=== PATIENT | female | born 1935 | race Caucasian/White ===

== ENCOUNTER → 2017-01-08 | Outpatient (CLI) | payer MEDICARE ==
--- NOTE | 2017-01-08 16:26 | REP ---
RIGHT RIBS, PA CHEST: HISTORY: Right-sided rib pain. No history of trauma. COMPARISON: None. Four views of the right ribs show on evidence of an acute fracture or destructive osseous lesion. TWO VIEW CHEST: COMPARISON: None. HISTORY: Right-sided pain. The lung zuluaga are clear and the heart is not enlarged. The pleural angles are sharp. There is a grade II anterior wedge-shaped compression deformity seen involving T6. IMPRESSION: Possible T6 compression fracture of uncertain etiology, correlate clinically and consider MRI for further evaluation if clinically relevant. Signed by Michael Timmons DO 01/09/2017 10:11 A
--- NOTE | 2017-01-08 16:37 | REP ---
THORACIC SPINE, THREE VIEWS: REASON: Back pain which by history is acute. COMPARISON: There are no priors for comparison. There is an anterior wedge deformity seen involving which is either T5 or T6. Since the patient has acute pain this may be secondary to an acute grade 2 compression fracture. If the exact age of this needs to be determined, then an MRI would be appropriate. IMPRESSION: Findings as described above. Signed by Michael Timmons DO 01/09/2017 10:11 A
== END ==
LOC: M SMT 13:50
PROVIDERS: ATTEND Nurse Practitioner Family
DX: M54.6 Pain in thoracic spine (principal); R35.0 Frequency of micturition
CPT/HCPCS: 36415; 71010; 71101; 72072; 80048; 81001; 85025; 87086; G0463

== ENCOUNTER → 2017-01-08 | Outpatient (REF) | payer MEDICARE ==
[2017-01-08 14:04] LABS: ANION GAP 9 MEQ/L (8-16); BLOOD UREA NITROGEN 11 MG/DL (7-18); CALCIUM LEVEL 9.3 MG/DL (8.8-10.2); CARBON DIOXIDE LEVEL 28 MEQ/L (21-32); CHLORIDE LEVEL 96 MEQ/L (98-107); CREATININE FOR GFR 0.82 MG/DL (0.55-1.02); GLOMERULAR FILTRATION RATE > 60.0 (>32); GLUCOSE, FASTING 91 MG/DL (83-110); POTASSIUM SERUM 4.8 MEQ/L (3.5-5.1); SODIUM LEVEL 133 MEQ/L (136-145)
[2017-01-08 14:14] LABS: BASO # 0.1 K/mm3 (0.0-0.2); BASO % 0.8 % (0.0-1.0); EOS # 0.3 K/mm3 (0.0-0.50); EOS % 4.4 % (0.0-3.0); LARGE UNSTAINED CELL # 0.1 K/mm3 (0.0-0.4); LARGE UNSTAINED CELL % 1.6 % (0.0-4.0); LYMPH # 1.5 K/mm3 (1.5-4.5); LYMPH % 18.7 % (24.0-44.0); MEAN CORPUSCULAR HEMOGLOBIN 31.2 pg (27.0-33.0); MEAN CORPUSCULAR HGB CONC 34.1 g/dl (32.0-36.5); MEAN CORPUSCULAR VOLUME 91.6 fl (80.0-96.0); MONO # 0.4 K/mm3 (0.0-0.8); MONO % 5.5 % (0.0-5.0); NEUTROPHILS # 5.3 K/mm3 (1.8-7.7); NEUTROPHILS % 69.1 % (36.0-66.0); PLATELET COUNT, AUTOMATED 256 k/mm3 (150-450); RED CELL DISTRIBUTION WIDTH 12.4 % (11.5-14.5); WHITE BLOOD COUNT 7.6 K/mm3 (4.0-10.0)
== END ==
LOC: M SFHCPLAZ 10:30
PROVIDERS: ATTEND Nurse Practitioner Family
DX: R35.0 Frequency of micturition (principal)

== ENCOUNTER → 2017-01-09 | Outpatient (REF) | payer MEDICARE ==
[2017-01-09 18:01] LABS: ALBUMIN 4.4 GM/DL (3.2-5.2); ALBUMIN/GLOBULIN RATIO 1.76 (1.00-1.93); ALKALINE PHOSPHATASE 66 U/L (45-117); ALT/SGPT 16 U/L (12-78); ANION GAP 8 MEQ/L (8-16); AST/SGOT 20 U/L (15-37); BILIRUBIN,TOTAL 0.5 MG/DL (0.2-1.0); BLOOD UREA NITROGEN 12 MG/DL (7-18); CALCIUM LEVEL 9.3 MG/DL (8.8-10.2); CARBON DIOXIDE LEVEL 28 MEQ/L (21-32); CHLORIDE LEVEL 94 MEQ/L (98-107); CREATININE FOR GFR 0.78 MG/DL (0.55-1.02); GLOMERULAR FILTRATION RATE > 60.0 (>32); GLUCOSE, FASTING 83 MG/DL (83-110); PHOSPHORUS LEVEL 3.3 MG/DL (2.5-4.9); POTASSIUM SERUM 4.4 MEQ/L (3.5-5.1); SODIUM LEVEL 130 MEQ/L (136-145); TOTAL PROTEIN 6.9 GM/DL (6.4-8.2)
[2017-01-10 12:04] LABS: ALBUMIN 4.17 GM/DL (3.29-5.55); ALBUMIN % 60.5 % (55.8-66.1); GAMMA GLOBULIN % 11.1 % (11.1-18.8)
[2017-01-12 10:51] LABS: FREE KAPPA LIGHT CHAINS SERUM 20.6 mg/L (3.30-19.40); FREE KAPPA LIGHT CHAINS URINE 9.29 mg/L (1.35-24.19); FREE LAMBDA LIGHT CHAINS SERUM 14.9 mg/L (5.71-26.30); FREE LAMBDA LIGHT CHAINS URINE 0.43 mg/L (0.24-6.66); KAPPA/LAMBDA RATIO SERUM 1.38 (0.26-1.65)
== END ==
LOC: M SFHCPLAZ 15:46
PROVIDERS: ATTEND Nurse Practitioner Family
DX: M81.0 Age-related osteoporosis without current pathological fracture (principal); Z79.899 Other long term (current) drug therapy
CPT/HCPCS: 36415; 82306; 83883; 83970; 84075; 84100; 84165; 84166; 84443; 85652; G0463

== ENCOUNTER → 2017-01-11 | Outpatient (CLI) | payer MEDICARE | LOC: M LAB 11:52 | PROVIDERS: ATTEND Nurse Practitioner Family | DX: E87.1 Hypo-osmolality and hyponatremia (principal) ==

== ENCOUNTER → 2017-02-21 | Outpatient (CLI) | payer MEDICARE ==
[2017-02-21 08:18] LABS: ALBUMIN 3.7 GM/DL (3.2-5.2); ALBUMIN/GLOBULIN RATIO 1.19 (1.00-1.93); ALKALINE PHOSPHATASE 57 U/L (45-117); ALT/SGPT 19 U/L (12-78); ANION GAP 8 MEQ/L (8-16); AST/SGOT 19 U/L (15-37); BILIRUBIN,TOTAL 0.4 MG/DL (0.2-1.0); BLOOD UREA NITROGEN 15 MG/DL (7-18); CALCIUM LEVEL 9.3 MG/DL (8.8-10.2); CARBON DIOXIDE LEVEL 29 MEQ/L (21-32); CHLORIDE LEVEL 100 MEQ/L (98-107); CHOLESTEROL LEVEL 179 MG/DL (<200); CREATININE FOR GFR 0.81 MG/DL (0.55-1.02); FREE T4 0.93 NG/DL (0.76-1.46); GLOMERULAR FILTRATION RATE > 60.0 (>32); GLUCOSE, FASTING 93 MG/DL (83-110); POTASSIUM SERUM 4.4 MEQ/L (3.5-5.1); SODIUM LEVEL 137 MEQ/L (136-145); TOTAL PROTEIN 6.8 GM/DL (6.4-8.2); TRIGLYCERIDES LEVEL 57 MG/DL (<150)
== END ==
LOC: M LAB 07:12
PROVIDERS: ATTEND Nurse Practitioner Family
DX: E78.2 Mixed hyperlipidemia (principal); E55.9 Vitamin D deficiency, unspecified; E03.9 Hypothyroidism, unspecified

== ENCOUNTER → 2017-11-14 | Outpatient (REF) | payer MEDICARE ==
[2017-11-14 13:43] LABS: BASO # 0.1 10^3/uL (0.0-0.2); EOS # 0.1 10^3/uL (0.0-0.50); EOS % 2.4 % (0.0-3.0); HEMATOCRIT 35.5 % (36.0-47.0); IMMATURE GRANULOCYTE % 0.4 % (0-0); LYMPH # 1.6 10^3/uL (1.5-4.5); LYMPH % 32.5 % (24.0-44.0); MEAN CORPUSCULAR HEMOGLOBIN 30.8 pg (27.0-33.0); MEAN CORPUSCULAR HGB CONC 33.8 g/dl (32.0-36.5); MEAN CORPUSCULAR VOLUME 91.3 fl (80.0-96.0); MONO # 0.6 10^3/uL (0.0-0.8); MONO % 11.1 % (0.0-5.0); NEUTROPHILS # 2.6 10^3/uL (1.8-7.7); NEUTROPHILS % 52.6 % (36.0-66.0); PLATELET COUNT, AUTOMATED 196 10^3/uL (150-450); RED BLOOD COUNT 3.89 10^6/uL (4.00-5.40); RED CELL DISTRIBUTION WIDTH 12.3 % (11.5-14.5)
[2017-11-14 13:59] LABS: ADD MORPHOLOGY? YES; PLT CLUMPS? POS FLAG; POS COUNT POS FLAG
[2017-11-14 14:00] LABS: PLATELET CLUMPS SMALL AMT; PLATELET ESTIMATE NORMAL (NORMAL)
[2017-11-14 14:01] LABS: POIKILOCYTOSIS 1+
[2017-11-14 14:02] LABS: ALBUMIN/GLOBULIN RATIO 1.48 (1.00-1.93); ALKALINE PHOSPHATASE 52 U/L (45-117); ALT/SGPT 20 U/L (12-78); AMYLASE 90 U/L (25-115); ANION GAP 8 MEQ/L (8-16); AST/SGOT 27 U/L (7-37); BILIRUBIN,TOTAL 0.3 MG/DL (0.2-1.0); BLOOD UREA NITROGEN 14 MG/DL (7-18); CARBON DIOXIDE LEVEL 27 MEQ/L (21-32); CHLORIDE LEVEL 97 MEQ/L (98-107); CREATININE FOR GFR 0.74 MG/DL (0.55-1.02); GLOMERULAR FILTRATION RATE > 60.0 (>32); GLUCOSE, FASTING 84 MG/DL (83-110); LIPASE 245 U/L (73-393); POTASSIUM SERUM 4.7 MEQ/L (3.5-5.1); SODIUM LEVEL 132 MEQ/L (136-145); TOTAL PROTEIN 6.7 GM/DL (6.4-8.2)
== END ==
LOC: M SFHCPLAZ 10:27
DX: R10.30 Lower abdominal pain, unspecified (principal)
CPT/HCPCS: 82150

== ENCOUNTER → 2017-11-19 | Outpatient (CLI) | payer MEDICARE ==
[~2017-11-19] MED LIST: GASTROGRAFIN SOLUTION 30ML (Q9963) As Ordered; ISOVUE-370 76% 100ML VIAL (Q9967) As Ordered
== END ==
LOC: M RAD 11:48
DX: R10.30 Lower abdominal pain, unspecified (principal); M51.36 Other intervertebral disc degeneration, lumbar region
CPT/HCPCS: Q9963

== ENCOUNTER → 2018-03-26 | Outpatient (REF) | payer MEDICARE ==
[2018-03-26 17:14] LABS: ALBUMIN 3.8 GM/DL (3.2-5.2); ALBUMIN/GLOBULIN RATIO 1.27 (1.00-1.93); ALKALINE PHOSPHATASE 56 U/L (45-117); ALT/SGPT 17 U/L (12-78); ANION GAP 6 MEQ/L (8-16); AST/SGOT 19 U/L (7-37); BILIRUBIN,TOTAL 0.3 MG/DL (0.2-1.0); BLOOD UREA NITROGEN 16 MG/DL (7-18); CALCIUM LEVEL 9.3 MG/DL (8.8-10.2); CARBON DIOXIDE LEVEL 30 MEQ/L (21-32); CHLORIDE LEVEL 98 MEQ/L (98-107); CREATININE FOR GFR 0.75 MG/DL (0.55-1.30); FREE T4 0.96 NG/DL (0.76-1.46); GLOMERULAR FILTRATION RATE > 60.0 (>32); GLUCOSE, FASTING 83 MG/DL (70-100); MAGNESIUM LEVEL 1.9 MG/DL (1.8-2.4); POTASSIUM SERUM 4.3 MEQ/L (3.5-5.1); SODIUM LEVEL 134 MEQ/L (136-145); TOTAL PROTEIN 6.8 GM/DL (6.4-8.2)
== END ==
LOC: M SFHCPLAZ 14:31
DX: M81.0 Age-related osteoporosis without current pathological fracture (principal); E55.9 Vitamin D deficiency, unspecified; E03.9 Hypothyroidism, unspecified
CPT/HCPCS: 83735

== ENCOUNTER → 2018-07-16 | Outpatient (CLI) | payer MEDICARE | LOC: M WHC 12:48 | DX: M81.0 Age-related osteoporosis without current pathological fracture (principal) | CPT/HCPCS: 77080 ==

== ENCOUNTER → 2018-09-16 | Outpatient (CLI) | payer MEDICARE | LOC: M SMT 13:47 | DX: M43.16 Spondylolisthesis, lumbar region (principal); M25.78 Osteophyte, vertebrae; M41.86 Other forms of scoliosis, lumbar region; M41.87 Other forms of scoliosis, lumbosacral region; M54.41 Lumbago with sciatica, right side | CPT/HCPCS: 72110; G0463 ==

== ENCOUNTER → 2019-01-19 | Outpatient (CLI) | payer MEDICARE ==
[~2019-01-19] MED LIST changes: +CALCCHW4 PO; +CRES10TA32 PO; +CVS20TAB PO; +FISH1CAP37 PO; -GASTROGRAFIN SOLUTION 30ML (Q9963) As Ordered; -ISOVUE-370 76% 100ML VIAL (Q9967) As Ordered; +MAGN250T7 PO; +PROBCAP14 PO; +SYNT25TA PO; +VIAC8.5C PO; +VITATAB11 PO
--- NOTE | 2019-01-20 19:20 | REPMRS ---
Patient History The patient states she had a clinical breast exam in 2017.No known family history of cancer. Digital Mammo Screening Bilat: January 19, 2019 - Exam #: [id number] Bilateral CC and MLO view(s) were taken. Technologist: Dori Romero, Technologist Prior study comparison: 2017, bilateral diagnostic 3D/tomosynthesis, performed at [facility]. December 19, 2015, digital mammo diagnostic bilateral performed at [facility]. December 16, 2014, digital woman screen mammo, performed at [facility]. FINDINGS: There are scattered fibroglandular densities. There has been no change in the appearance of the mammogram from the prior studies. There is a mild amount of residual fibroglandular tissue which is fairly symmetric. There is no interval development of dominant mass, architectural distortion, or clustered microcalcification suggestive of malignancy. Large coarse benign appearing calcifications are present on the right.There are scattered, small, benign calcifications of doubtful clinical significance. Post operative scarring left breast is unchanged for years. 3-D tomosynthesis shows no additional findings. No significant changes when compared with prior studies. Assessment: BI-RADS/ACR category 2 mammogram. Benign Findings. Recommendation Routine screening mammogram in 1 year (for women over age 40). This mammogram was interpreted with the aid of an FDA-approved computer-aided dectection system. A. Negative x-ray reports should not delay biopsy if a dominant or clinically suspicious mass is present. B. Four to eight percent of cancers are not identified by mammography. C. Adenosis and dense breast may obscure an underlying neoplasm. Electronically Signed By: Aric Ríos MD 01/20/19 [id number]
== END ==
LOC: M RAD 10:38
PROVIDERS: ATTEND Internal Medicine Hematology & Oncology
DX: Z12.31 Encounter for screening mammogram for malignant neoplasm of breast (principal)

== ENCOUNTER → 2019-01-22 | Outpatient (CLI) | payer MEDICARE ==
[2019-01-22 07:36] LABS: ALBUMIN 3.8 GM/DL (3.2-5.2); ALT/SGPT 16 U/L (12-78); BILIRUBIN,TOTAL 0.4 MG/DL (0.2-1.0); BLOOD UREA NITROGEN 15 MG/DL (7-18); CALCIUM LEVEL 9.3 MG/DL (8.8-10.2); CARBON DIOXIDE LEVEL 29 MEQ/L (21-32); CHLORIDE LEVEL 99 MEQ/L (98-107); CHOLESTEROL LEVEL 199 MG/DL (<200); CHOLESTEROL RISK RATIO 2.139 (<5); CREATININE FOR GFR 0.74 MG/DL (0.55-1.30); FREE T4 1.02 NG/DL (0.76-1.46); GLOMERULAR FILTRATION RATE > 60.0 (>32); GLUCOSE, FASTING 92 MG/DL (70-100); HDL CHOLESTEROL 93 MG/DL (>40); LDL CHOLESTEROL 96 MG/DL (<100); MAGNESIUM LEVEL 1.9 MG/DL (1.8-2.4); NON-HDL-C 106 MG/DL; POTASSIUM SERUM 4.1 MEQ/L (3.5-5.1); SODIUM LEVEL 136 MEQ/L (136-145); TOTAL PROTEIN 6.8 GM/DL (6.4-8.2); TRIGLYCERIDES LEVEL 51 MG/DL (<150)
[2019-01-22 09:30] LABS: TOTAL 25(OH) VITAMIN D 59.5 NG/ML (30.0-100.0)
== END ==
LOC: M LAB 06:33
PROVIDERS: ATTEND Internal Medicine Hematology & Oncology
DX: M81.0 Age-related osteoporosis without current pathological fracture (principal); E03.9 Hypothyroidism, unspecified; E55.9 Vitamin D deficiency, unspecified; E78.2 Mixed hyperlipidemia

== ENCOUNTER → 2019-06-17 | Outpatient (REF) | payer MEDICARE ==
[~2019-06-17] MED LIST changes: +CRES10TA PO; -CRES10TA32 PO; -CVS20TAB PO; +D200CAP3 PO; +OMEP20TA9 PO; -VIAC8.5C PO; +VIACTIV 500-5001 CHW PO
[2019-06-17 13:49] LABS: BASO # 0.1 10^3/uL (0.0-0.2); BASO % 0.8 % (0.0-1.0); EOS # 0.2 10^3/uL (0.0-0.50); EOS % 3.1 % (0.0-3.0); HEMATOCRIT 37.4 % (36.0-47.0); HEMOGLOBIN 12.6 g/dl (12.0-15.5); LYMPH # 1.2 10^3/uL (1.5-4.5); LYMPH % 19.1 % (24.0-44.0); MEAN CORPUSCULAR HEMOGLOBIN 30.2 pg (27.0-33.0); MEAN CORPUSCULAR HGB CONC 33.7 g/dl (32.0-36.5); MEAN CORPUSCULAR VOLUME 89.7 fl (80.0-96.0); MONO # 0.5 10^3/uL (0.0-0.8); MONO % 8.4 % (0.0-5.0); NEUTROPHILS # 4.2 10^3/uL (1.8-7.7); NEUTROPHILS % 68.4 % (36.0-66.0); PLATELET COUNT, AUTOMATED 276 10^3/uL (150-450); RED BLOOD COUNT 4.17 10^6/uL (4.00-5.40); WHITE BLOOD COUNT 6.2 10^3/uL (4.0-10.0)
[2019-06-17 14:22] LABS: BLOOD UREA NITROGEN 13 MG/DL (7-18); CALCIUM LEVEL 9.2 MG/DL (8.8-10.2); CARBON DIOXIDE LEVEL 29 MEQ/L (21-32); CHLORIDE LEVEL 92 MEQ/L (98-107); CREATININE FOR GFR 0.78 MG/DL (0.55-1.30); FREE T4 1.31 NG/DL (0.76-1.46); GLOMERULAR FILTRATION RATE > 60.0 (>32); GLUCOSE, FASTING 93 MG/DL (70-100); POTASSIUM SERUM 4.2 MEQ/L (3.5-5.1); SODIUM LEVEL 127 MEQ/L (136-145); THYROID STIMULATING HORMONE 0.825 uIU/ML (0.358-3.740)
[2019-06-17 14:25] LABS: TOTAL 25(OH) VITAMIN D 70.9 NG/ML (30.0-100.0)
[2019-06-17 14:26] LABS: VITAMIN B12 LEVEL 373 PG/ML
[2019-06-17 14:27] LABS: FOLATE 11.8 NG/ML
== END ==
LOC: M SFHCPLAZ 11:45
PROVIDERS: ATTEND Nurse Practitioner Family
DX: R53.83 Other fatigue (principal); E03.9 Hypothyroidism, unspecified; E55.9 Vitamin D deficiency, unspecified
CPT/HCPCS: 36415; 80048; 82306; 82607; 82746; 84439; 84443; 85025; G0463

== ENCOUNTER 2019-06-19 07:30 | Emergency (ER) | payer MEDICARE ==
[~2019-06-19] VITALS: Ht 165.1 cm; Wt 58.1 kg
[~2019-06-19 07:30] MED LIST changes: -D200CAP3 PO
[2019-06-19] MEDS ORDERED: D200CAP3 PO (07:52)
[2019-06-19 10:29] LABS: BASO # 0.1 10^3/uL (0.0-0.2); BASO % 0.7 % (0.0-1.0); EOS # 0.1 10^3/uL (0.0-0.50); EOS % 1.6 % (0.0-3.0); HEMATOCRIT 38.4 % (36.0-47.0); HEMOGLOBIN 13.3 g/dl (12.0-15.5); LYMPH # 1.4 10^3/uL (1.5-4.5); LYMPH % 18.5 % (24.0-44.0); MEAN CORPUSCULAR HEMOGLOBIN 31.4 pg (27.0-33.0); MEAN CORPUSCULAR HGB CONC 34.6 g/dl (32.0-36.5); MEAN CORPUSCULAR VOLUME 90.8 fl (80.0-96.0); MONO # 0.6 10^3/uL (0.0-0.8); MONO % 8.5 % (0.0-5.0); NEUTROPHILS # 5.1 10^3/uL (1.8-7.7); NEUTROPHILS % 70.3 % (36.0-66.0); PLATELET COUNT, AUTOMATED 251 10^3/uL (150-450); RED BLOOD COUNT 4.23 10^6/uL (4.00-5.40); WHITE BLOOD COUNT 7.3 10^3/uL (4.0-10.0)
[2019-06-19 11:00] LABS: ALBUMIN 4.1 GM/DL (3.2-5.2); ALT/SGPT 19 U/L (12-78); BILIRUBIN,DIRECT < 0.1 MG/DL (0.0-0.2); BILIRUBIN,TOTAL 0.4 MG/DL (0.2-1.0); CK-MB VALUE MASS 2.3 NG/ML (<3.6); CPK CREATINE PHOSPHOKINASE 123 U/L (26-192); MB/CK RELATIVE INDEX 1.87 (< OR =4); TOTAL PROTEIN 7.4 GM/DL (6.4-8.2); TROPONIN I < 0.02 NG/ML (< 0.10)
[2019-06-19 11:01] LABS: BLOOD UREA NITROGEN 16 MG/DL (7-18); CALCIUM LEVEL 9.7 MG/DL (8.8-10.2); CARBON DIOXIDE LEVEL 27 MEQ/L (21-32); CHLORIDE LEVEL 97 MEQ/L (98-107); CREATININE FOR GFR 0.65 MG/DL (0.55-1.30); GLOMERULAR FILTRATION RATE > 60.0 (>32); GLUCOSE, FASTING 99 MG/DL (70-100); POTASSIUM SERUM 4.4 MEQ/L (3.5-5.1); SODIUM LEVEL 131 MEQ/L (136-145); THYROID STIMULATING HORMONE 0.981 uIU/ML (0.358-3.740)
--- NOTE | 2019-06-19 11:55 | REP ---
CT HEAD WITHOUT CONTRAST: HISTORY: Altered mental status. Areas of decreased attentuation are present in the periventricular white matter. This represents small vessel ischemic disease. There is no intraparenchymal hemorrhage, mass, or midline shift. The ventricular system and cortical sulci are dilated consistent with moderate volume loss. There is no extracerebral collection. The visualized sinuses are clear. IMPRESSION: 1. Small vessel ischemic disease. 2. Moderate volume loss. Electronically Signed by Benedicto Humphreys MD 06/19/2019 12:00 P
--- NOTE | 2019-06-19 13:13 | REP ---
CHEST PA AND LATERAL: 06/19/2019. Comparison: 01/08/2017. Clinical history: Weakness. Findings: Two-view show the lung zuluaga are mildly hyperinflated with flattened diaphragms and increased AP diameter. No infiltrate, atelectasis, mass, free fluid, or effusion. Heart not enlarged. The aorta is tortuous and without aneurysm. Airway intact. No widening the mediastinum. No vascular redistribution or edema. Bony thorax shows some demineralization but no acute compression deformity or destructive lesion. There is a gentle dextroconvex curvature lower thoracic upper lumbar spine. Axillary clips on the left as before. Impression: 1. Hyperinflation may reflect some degree of COPD but no cardiomegaly, edema, effusion or acute infiltrate. Electronically Signed by Aric Ríos MD 06/19/2019 03:06 P
[2019-06-19 14:09] VITALS: BP 164/80
--- NOTE | 2019-06-20 10:17 | ECGEPIP ---
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
[2019-10-02] MEDS ORDERED: FISH10002 PO (08:29)
[2019-10-02] MEDS ORDERED: MIRA3350 PO (08:29)
[2019-10-02] MEDS ORDERED: VIAC1CHW PO (08:29)
[2019-10-02] MEDS ORDERED: RA B1TAB7 PO (08:29)
[2019-10-02] MEDS ORDERED: PRESCAP PO (08:39)
[2019-10-02] MEDS ORDERED: METR0.7534 TOP (08:39)
== END 2019-06-19 14:10 | disposition home or self-care (01) ==
LOC: M ED 07:30
DX: R53.1 Weakness (principal); I45.10 Unspecified right bundle-branch block; E78.5 Hyperlipidemia, unspecified; K21.9 Gastro-esophageal reflux disease without esophagitis; Z79.899 Other long term (current) drug therapy; Z79.890 Hormone replacement therapy; Z88.0 Allergy status to penicillin

== ENCOUNTER 2019-06-21 22:20 | Emergency (ER) | payer MEDICARE ==
[~2019-06-21] VITALS: Ht 165.1 cm; Wt 56.8 kg
[~2019-06-21 22:20] MED LIST changes: +D200CAP3 PO
[2019-06-21] MEDS ORDERED: FLEET ENEMA PR STA (23:20)
[2019-06-22] MEDS ORDERED: ONDANSETRON 4 MG ORAL DISINTEGRATING TAB (Q0162 PER 1MG) PO ONE (00:15)
[2019-06-22 00:49] VITALS: BP 144/77
--- NOTE | 2019-06-22 08:27 | REP ---
Acute abdomen series: Three views. History: "Stool "". Comparison chest x-ray June 19, 2019. Findings: Upright chest radiograph shows clips in the left axillary soft tissues. The thoracic aorta is tortuous as before. Heart size is normal. The lungs are clear. There is no evidence of infiltrate or free subdiaphragmatic air. Supine and erect views of the abdomen show a few air-fluid levels in the right colon. No large or small bowel dilation is seen. Psoas margins and flank stripes are intact. There are phleboliths in the pelvis and some vascular calcifications noted. There is a levoconvex curvature in the lumbar spine. Impression: There are a few right colon air-fluid levels, question enteritis. No evidence of obstruction or free air. Electronically Signed by Edgardo Demarco MD 06/22/2019 04:44 P
== END 2019-06-22 00:50 | disposition home or self-care (01) ==
LOC: M ED 22:20
DX: K59.00 Constipation, unspecified (principal); K21.9 Gastro-esophageal reflux disease without esophagitis; E03.9 Hypothyroidism, unspecified; Z79.899 Other long term (current) drug therapy; Z88.0 Allergy status to penicillin
CPT/HCPCS: 74021; 99283; Q0162

== ENCOUNTER → 2019-06-23 | Outpatient (REF) | payer MEDICARE ==
[2019-06-23 12:42] LABS: OSMOLALITY URINE 315 MOSM/KG (500-800)
[2019-06-23 12:43] LABS: SODIUM,RANDOM URINE 35 MEQ/L
[2019-06-23 12:48] LABS: BLOOD UREA NITROGEN 18 MG/DL (7-18); CALCIUM LEVEL 10.4 MG/DL (8.8-10.2); CARBON DIOXIDE LEVEL 29 MEQ/L (21-32); CHLORIDE LEVEL 91 MEQ/L (98-107); GLOMERULAR FILTRATION RATE > 60.0 (>32); GLUCOSE, FASTING 85 MG/DL (70-100); POTASSIUM SERUM 4.6 MEQ/L (3.5-5.1); SODIUM LEVEL 128 MEQ/L (136-145)
== END ==
LOC: M SFHCPLAZ 08:43
PROVIDERS: ATTEND Family Medicine
DX: E87.1 Hypo-osmolality and hyponatremia (principal)
CPT/HCPCS: 80048; 83935; 84300; G0463

== ENCOUNTER → 2019-06-30 | Outpatient (REF) | payer MEDICARE ==
[2019-06-30 10:28] LABS: BLOOD UREA NITROGEN 16 MG/DL (7-18); CALCIUM LEVEL 9.2 MG/DL (8.8-10.2); CARBON DIOXIDE LEVEL 30 MEQ/L (21-32); CHLORIDE LEVEL 97 MEQ/L (98-107); CREATININE FOR GFR 0.68 MG/DL (0.55-1.30); GLOMERULAR FILTRATION RATE > 60.0 (>32); GLUCOSE, FASTING 92 MG/DL (70-100); POTASSIUM SERUM 4.5 MEQ/L (3.5-5.1); SODIUM LEVEL 133 MEQ/L (136-145)
== END ==
LOC: M SFHCPLAZ 08:30
PROVIDERS: ATTEND Family Medicine
DX: E87.1 Hypo-osmolality and hyponatremia (principal)

== ENCOUNTER → 2019-07-20 | Outpatient (REF) | payer MEDICARE ==
[2019-07-20 14:12] LABS: BLOOD UREA NITROGEN 26 MG/DL (7-18); CALCIUM LEVEL 9.7 MG/DL (8.8-10.2); CARBON DIOXIDE LEVEL 28 MEQ/L (21-32); CHLORIDE LEVEL 97 MEQ/L (98-107); CREATININE FOR GFR 0.71 MG/DL (0.55-1.30); GLOMERULAR FILTRATION RATE > 60.0 (>32); GLUCOSE, FASTING 85 MG/DL (70-100); SODIUM LEVEL 134 MEQ/L (136-145)
== END ==
LOC: M SFHCPLAZ 09:21
PROVIDERS: ATTEND Family Medicine
DX: E87.1 Hypo-osmolality and hyponatremia (principal)
CPT/HCPCS: 36415; 80048; G0463

== ENCOUNTER → 2019-09-09 | Outpatient (REF) | payer MEDICARE ==
[2019-09-09 12:13] LABS: BLOOD UREA NITROGEN 26 MG/DL (7-18); CALCIUM LEVEL 9.5 MG/DL (8.8-10.2); CARBON DIOXIDE LEVEL 31 MEQ/L (21-32); CHLORIDE LEVEL 102 MEQ/L (98-107); CREATININE FOR GFR 0.74 MG/DL (0.55-1.30); FREE T4 0.87 NG/DL (0.76-1.46); GLOMERULAR FILTRATION RATE > 60.0 (>32); GLUCOSE, FASTING 85 MG/DL (70-100); POTASSIUM SERUM 4.7 MEQ/L (3.5-5.1); SODIUM LEVEL 136 MEQ/L (136-145)
== END ==
LOC: M SFHCPLAZ 10:32
PROVIDERS: ATTEND Nurse Practitioner Family
DX: E03.9 Hypothyroidism, unspecified (principal); E87.1 Hypo-osmolality and hyponatremia

== ENCOUNTER → 2020-01-22 | Outpatient (CLI) | payer MEDICARE ==
[~2020-01-22] MED LIST changes: +FISH10002 PO; +METR0.7534 TOP; +MIRA3350 PO; +PRESCAP PO; +RA B1TAB7 PO; +VIAC1CHW PO
--- NOTE | 2020-01-22 10:54 | REPMRS ---
Patient History The patient states she had a clinical breast exam in 09/29.No known family history of cancer. The patient has a personal history of left breast cancer diagnosed in 1998. Treated conservatively. Digital Woman Screen Mammo: January 22, 2020 - Exam #: [id number] Bilateral CC and MLO view(s) were taken. Technologist: Alyssa Sy, Technologist Prior study comparison: January 19, 2019, bilateral digital mammo screening bilat, performed at [facility]. 2017, bilateral diagnostic 3D/tomosynthesis, performed at [facility]. December 19, 2015, digital mammo diagnostic bilateral, performed at [facility]. FINDINGS: There are scattered fibroglandular densities. There are stable post treatment changes in the left breast. There has been no change in the appearance of the mammogram from the prior studies. There is a mild amount of scattered fibroglandular density which is fairly symmetric. There is no interval development of dominant mass, architectural distortion, or grouped microcalcification suggestive of malignancy. 3-D tomosynthesis shows no additional findings. Assessment: BI-RADS/ACR category 2 mammogram. Benign Findings. Recommendation Routine screening mammogram of both breasts in 1 year (for women over age 40). This mammogram was interpreted with the aid of an FDA-approved computer-aided dectection system. Electronically Signed By: Hussain Demarco MD 01/22/20 1054
== END ==
LOC: M WHC 09:54
PROVIDERS: ATTEND Internal Medicine Hematology
DX: Z12.31 Encounter for screening mammogram for malignant neoplasm of breast (principal); Z85.3 Personal history of malignant neoplasm of breast

== ENCOUNTER → 2020-03-10 | Outpatient (REF) | payer MEDICARE ==
[2020-03-10 11:08] LABS: ALBUMIN 3.7 GM/DL (3.2-5.2); ALT/SGPT 26 U/L (12-78); BILIRUBIN,TOTAL 0.4 MG/DL (0.2-1.0); BLOOD UREA NITROGEN 20 MG/DL (7-18); CALCIUM LEVEL 9.5 MG/DL (8.8-10.2); CARBON DIOXIDE LEVEL 28 MEQ/L (21-32); CHLORIDE LEVEL 102 MEQ/L (98-107); GLOMERULAR FILTRATION RATE > 60.0 (>32); GLUCOSE, FASTING 86 MG/DL (70-100); SODIUM LEVEL 136 MEQ/L (136-145); TOTAL 25(OH) VITAMIN D 58.1 NG/ML (30.0-100.0)
== END ==
LOC: M PLALAB 08:07
PROVIDERS: ATTEND Nurse Practitioner Family
DX: M81.0 Age-related osteoporosis without current pathological fracture (principal)

== ENCOUNTER → 2020-05-10 | Outpatient (RCR) | payer MEDICARE | LOC: M PT 11:42 | PROVIDERS: ATTEND Nurse Practitioner Family | DX: N39.41 Urge incontinence (principal) ==

== ENCOUNTER → 2020-05-25 | Outpatient (CLI) | payer MEDICARE ==
[~2020-05-25] MED LIST changes: +D31000TA2 PO; +DIGO0.123 PO; +FISH1000 PO; +IBUP200C28 PO; +METO50TA7 PO; +[UNRECOGNIZED DRUG - CODE] PO
[2020-05-25 07:41] LABS: ALBUMIN 3.6 GM/DL (3.2-5.2); ALT/SGPT 20 U/L (12-78); BILIRUBIN,TOTAL 0.4 MG/DL (0.2-1.0); BLOOD UREA NITROGEN 29 MG/DL (7-18); CALCIUM LEVEL 9.6 MG/DL (8.8-10.2); CARBON DIOXIDE LEVEL 30 MEQ/L (21-32); CHLORIDE LEVEL 103 MEQ/L (98-107); CHOLESTEROL LEVEL 199 MG/DL (<200); CHOLESTEROL RISK RATIO 2.518 (<5); GLOMERULAR FILTRATION RATE > 60.0 (>32); GLUCOSE, FASTING 86 MG/DL (70-100); HDL CHOLESTEROL 79 MG/DL (>40); LDL CHOLESTEROL 102 MG/DL (<100); NON-HDL-C 120 MG/DL; POTASSIUM SERUM 4.5 MEQ/L (3.5-5.1); SODIUM LEVEL 139 MEQ/L (136-145); TOTAL PROTEIN 6.9 GM/DL (6.4-8.2); TRIGLYCERIDES LEVEL 90 MG/DL (<150)
== END ==
LOC: M LAB 06:15
PROVIDERS: ATTEND Nurse Practitioner Family
DX: M81.0 Age-related osteoporosis without current pathological fracture (principal); E03.9 Hypothyroidism, unspecified; E78.2 Mixed hyperlipidemia

== ENCOUNTER 2020-06-07 08:00 | Outpatient (RCR) | payer MEDICARE ==
[~2020-06-07 08:00] MED LIST changes: -D31000TA2 PO; -DIGO0.123 PO; -FISH1000 PO; -IBUP200C28 PO; -METO50TA7 PO; -[UNRECOGNIZED DRUG - CODE] PO
== END 2020-06-10 ==
LOC: M PT 08:00
PROVIDERS: ATTEND Nurse Practitioner Family
DX: N39.41 Urge incontinence (principal)

== ENCOUNTER → 2020-08-30 | Outpatient (CLI) | payer MEDICARE ==
[~2020-08-30] MED LIST changes: +D31000TA2 PO; +DIGO0.123 PO; +FISH1000 PO; +IBUP200C28 PO; +METO50TA7 PO; +[UNRECOGNIZED DRUG - CODE] PO
--- NOTE | 2020-08-30 12:32 | REPPI ---
INDICATION: M54.41 MIDLINE LOW BACK PAIN COMPARISON: 06/30/2015 TECHNIQUE: AP, lateral, bilateral oblique, and coned-down views of the lumbar spine. FINDINGS: Osteopenia. Chronic levoconvex scoliosis and moderate to advanced multilevel degenerative changes noted including sclerosis/heterogeneity, osteophytosis and disc space obliteration at the L1-2 level with more moderate degenerative changes noted throughout the remainder of the visualized lower thoracic and lumbosacral spine. No acute fracture/compression injury or subluxation. IMPRESSION: 1. Focal advanced degenerative changes at L1-2. 2. Moderate multilevel degenerative changes noted throughout the remainder of the visualized thoracolumbar spine <Electronically signed by Anastacio Hernandez > 08/30/20 [id number]
--- NOTE | 2020-08-30 12:38 | REPPI ---
INDICATION: M25.561 RIGHT ANTERIOR KNEE PAIN COMPARISON: None. TECHNIQUE: AP, lateral, bilateral oblique and sunrise views of the right and left knee. FINDINGS: With the exception of chondrocalcinosis, the bilateral knee radiographs appear essentially normal/age-appropriate. No further osteoarthritic or inflammatory arthritic changes are appreciated. No evidence for acute injury. No obvious effusion. IMPRESSION: Elements of chondrocalcinosis noted bilaterally. Otherwise essentially normal, age-appropriate bilateral knee examination. <Electronically signed by Anastacio Hernandez > 08/30/20 [id number]
== END ==
LOC: M PLAIMG 11:53
PROVIDERS: ATTEND Nurse Practitioner Family
DX: M11.261 Other chondrocalcinosis, right knee (principal); M11.262 Other chondrocalcinosis, left knee; M51.34 Other intervertebral disc degeneration, thoracic region; M51.36 Other intervertebral disc degeneration, lumbar region; M51.37 Other intervertebral disc degeneration, lumbosacral region; M25.561 Pain in right knee; M54.41 Lumbago with sciatica, right side
CPT/HCPCS: 36415; 72110; 73564; 80048; G0463

== ENCOUNTER → 2020-08-30 | Outpatient (REF) | payer MEDICARE ==
[2020-08-30 16:01] LABS: BLOOD UREA NITROGEN 20 MG/DL (7-18); CALCIUM LEVEL 10.2 MG/DL (8.8-10.2); CARBON DIOXIDE LEVEL 31 MEQ/L (21-32); CHLORIDE LEVEL 98 MEQ/L (98-107); CREATININE FOR GFR 0.84 MG/DL (0.55-1.30); GLOMERULAR FILTRATION RATE > 60.0 (>32); GLUCOSE, FASTING 93 MG/DL (70-100); POTASSIUM SERUM 4.6 MEQ/L (3.5-5.1); SODIUM LEVEL 136 MEQ/L (136-145)
== END ==
LOC: M SFHCPLAZ 11:54
PROVIDERS: ATTEND Nurse Practitioner Family
DX: E87.1 Hypo-osmolality and hyponatremia (principal)

== ENCOUNTER → 2020-09-07 | Outpatient (CLI) | payer MEDICARE ==
--- NOTE | 2020-09-13 13:18 | DEXA ---
AP SPINE L1 - L4 1.222 0.2 2.2 LT FEMUR TOTAL 0.708 -2.4 0.0 LT NECK 0.689 -2.5 -0.1 RT FEMUR TOTAL 0.751 -2.0 0.3 RT NECK 0.675 -2.6 -0.2 TOTAL BODY TOTAL OTHER COMMENTS: Normal bone densitometry of the spine. There is low bone density of the left hip. There is osteoporosis of the right hip. The increased density of the spine does not represent a significant change. The increased density of the left hip does represent significant change. The increased density of the right hip does represent significant change The density of the spine has increased 22.8% since the initial exam on 04/25/2004. The increased 0.4% since the most recent exam on 07/16/2018. The density of the left hip has increased 0.7% since the initial exam on 04/25/2004. The density of the left hip has increased 2.3% since the most recent exam on 07/16/2018. The density of the right hip has increased 4.7% since the initial exam on 04/25/2004. The density of the right hip has increased 5.6% since the most recent exam on 07/16/2018. FOLLOW-UP: Recommendation for the next bone density exam: 2 years. MANUEL
== END ==
LOC: M WHC 12:44
PROVIDERS: ATTEND Nurse Practitioner Family
DX: M81.0 Age-related osteoporosis without current pathological fracture (principal); M85.9 Disorder of bone density and structure, unspecified

== ENCOUNTER 2020-09-09 09:55 | Observation (INO) | payer MEDICARE ==
[~2020-09-09] VITALS: Ht 160 cm; Wt 61.8 kg
[~2020-09-09 09:55] MED LIST changes: -D31000TA2 PO; -DIGO0.123 PO; -FISH1000 PO; -IBUP200C28 PO; -METO50TA7 PO; -[UNRECOGNIZED DRUG - CODE] PO
--- NOTE | 2020-09-09 10:24 | REP ---
INDICATION: CHEST PAIN. COMPARISON: 06/21/2019 FINDINGS: The technique utilized in obtaining the radiograph has magnified the cardiac silhouette and accentuated the interstitial markings. The superior mediastinal structures are midline. The cardiac silhouette is unremarkable in size, shape, and position. The diaphragmatic surfaces of the lungs are regular, and the costophrenic angles are clear. The pulmonary zuluaga are clear. The imaged osseous structures are intact. IMPRESSION: There is no acute cardiopulmonary disease. <Electronically signed by Michael Timmons > 09/09/20 [id number]
[2020-09-09 10:44] LABS: BASO % 0.6 % (0.0-1.0); EOS # 0.1 10^3/uL (0.0-0.5); EOS % 1.7 % (0.0-3.0); HEMOGLOBIN 11.7 g/dl (12.0-15.5); LYMPH # 1.2 10^3/uL (1.5-5.0); LYMPH % 23.2 % (24.0-44.0); MEAN CORPUSCULAR HGB CONC 32.5 g/dl (32.0-36.5); MEAN CORPUSCULAR VOLUME 95.2 fl (80.0-96.0); MONO # 0.4 10^3/uL (0.0-0.8); MONO % 7.9 % (0.0-5.0); NEUTROPHILS # 3.5 10^3/uL (1.5-8.5); NEUTROPHILS % 66.2 % (36.0-66.0); PLATELET COUNT, AUTOMATED 215 10^3/uL (150-450); RED BLOOD COUNT 3.78 10^6/uL (4.00-5.40); WHITE BLOOD COUNT 5.2 10^3/uL (4.0-10.0)
[2020-09-09 10:56] LABS: INR 0.94; PROTHROMBIN TIME 12.8 SECONDS (12.5-14.3)
[2020-09-09 10:57] LABS: PARTIAL THROMBOPLASTIN TIME 27.9 SECONDS (24.2-38.5)
[2020-09-09 11:20] LABS: ALBUMIN 3.6 GM/DL (3.2-5.2); ALT/SGPT 16 U/L (12-78); BILIRUBIN,DIRECT < 0.1 MG/DL (0.0-0.2); BILIRUBIN,TOTAL 0.3 MG/DL (0.2-1.0); FREE T4 1.06 NG/DL (0.76-1.46); LIPASE 210 U/L (73-393); TOTAL PROTEIN 6.5 GM/DL (6.4-8.2)
[2020-09-09] MEDS ORDERED: DIGOXIN 0.125 MG TAB PO ONE (11:45)
[2020-09-09] MEDS ORDERED: APIXABAN 2.5 MG TAB (ELIQUIS) PO ONE (11:45)
[2020-09-09] MEDS ORDERED: ATROPINE SULF 1MG/10ML SYRINGE (J0461) As Ordered ONE (11:50)
[2020-09-09] MEDS: METOPROLOL TART 25 MG TABLET PO SCH ×3 (12:00→23:33)
[2020-09-09] MEDS: LR 1,000 ML IV SCH (12:08)
[2020-09-09] MEDS ORDERED: D31000TA2 PO (12:22)
[2020-09-09] MEDS ORDERED: FISH1000 PO (12:22)
[2020-09-09] MEDS ORDERED: [UNRECOGNIZED DRUG - CODE] PO (12:22)
[2020-09-09] MEDS ORDERED: IBUP200C28 PO (12:22)
[2020-09-09] MEDS ORDERED: AMIODARONE 150MG/3ML INJ (J0282) As Ordered ONE (13:37)
[2020-09-09] MEDS ORDERED: LIDOCAINE 1% SDV 30ML VIAL As Ordered ONE (13:37)
[2020-09-09] MEDS ORDERED: propofoL 200 MG/20 ML VIAL As Ordered ONE (13:42)
[2020-09-09] MEDS ORDERED: fentaNYL 100 MCG/2 ML INJECTION (J3010) As Ordered ONE (13:42)
[2020-09-09] MEDS ORDERED: LIDOCAINE 2% 100MG/5ML SDV (FOR ANES.) As Ordered ONE (13:42)
[2020-09-09 13:47] LABS: MAGNESIUM LEVEL 1.8 MG/DL (1.8-2.4)
[2020-09-09] MEDS ORDERED: ceFAZolin 2 GM/D5W 50 ML IV BAG (J0690 PER 500MG) As Ordered ONE (14:02)
[2020-09-09] MEDS ORDERED: fentaNYL 100 MCG/2 ML INJECTION (J3010) IV PRN (16:15)
[2020-09-09] MEDS ORDERED: ONDANSETRON 4MG/2ML VIAL IV PRN (16:15)
[2020-09-09] MEDS ORDERED: LR 1,000 ML IV SCH (16:15)
[2020-09-09] MEDS ORDERED: METOCLOPRAMIDE INJ 10MG/2ML VIAL (J2765 PER 1) IV PRN (16:15)
[2020-09-09 16:24] VITALS: BP 159/73
[2020-09-09 16:48] VITALS: BP 138/65
[2020-09-09] MEDS ORDERED: SLF 3 ML SYR IV PRN (17:15)
--- NOTE | 2020-09-09 17:22 | REP ---
INDICATION: Post pacer implant. COMPARISON: 09/09/2020, 10:07 a.m.. TECHNIQUE: SINGLE PORTABLE AP VIEW OF THE CHEST WAS PERFORMED. FINDINGS: There is no acute infiltrate or pulmonary edema. Heart does not appear to be significantly enlarged. There is calcification and tortuosity of the thoracic aorta. Left 2 lead pacemaker appears to be in good position. There is no pneumothorax. IMPRESSION: No acute infiltrate. The left 2 lead pacemaker appears to be in good position. <Electronically signed by Alonso Cohen > 09/09/20 [id number]
[2020-09-09] MEDS: ACETAMINOPHEN TAB 650MG DOSE (2X325MG) PO PRN ×2 (17:48→22:33)
[2020-09-09] MEDS: DIGOXIN 0.125 MG TAB PO SCH (17:48)
--- NOTE | 2020-09-09 17:50 | ECGEPIP ---
[facility] Test Date: 2020-09-09 Pat Name: KOMAL JESUS Department: Room: [place] [address] Gender: Female Straight Cutter: BERNARD : 1935 Requested By: Brando Contreras Order Number: [id number] Reading MD: Brando Contreras Measurements Intervals [place] Rate: 69 P: -9 SD: 218 QRS: 9 QRSD: 150 T: 3 QT: 418 QTc: 451 Interpretive Statements ELECTRONIC ATRIAL PACEMAKER RIGHT BUNDLE BRANCH BLOCK MODERATE VOLTAGE CRITERIA FOR LVH, CONSIDER NORMAL VARIANT POSSIBLE SEPTAL MYOCARDIAL INFARCTION, OF INDETERMINATE AGE Electronically Signed on 09-09-2020 17:50:14 EDT by Brando Contreras
[2020-09-09 20:00] VITALS: BP 129/66
[2020-09-09] MEDS ORDERED: ROSUVASTATIN 10 MG TAB (CRESTOR) PO SCH (21:00)
[2020-09-09] MEDS: SLF 3 ML SYR IV SCH (21:08)
[2020-09-09] MEDS: ceFAZolin SOD 1 GM in D5W MINI-BAG PLUS 50 ML IV SCH (21:08)
[2020-09-10] VITALS: BP 130/70
[2020-09-10] MEDS: ACETAMINOPHEN TAB 650MG DOSE (2X325MG) PO PRN ×2 (02:34→11:08)
[2020-09-10 04:00] VITALS: BP 139/69
[2020-09-10] MEDS: LR 1,000 ML IV SCH (04:25)
[2020-09-10] MEDS ORDERED: LEVOTHYROXINE 25MCG TABLET (0.025MG) PO SCH (06:00)
[2020-09-10] MEDS: METOPROLOL TART 25 MG TABLET PO SCH ×2 (06:06→12:23)
[2020-09-10] MEDS: ceFAZolin SOD 1 GM in D5W MINI-BAG PLUS 50 ML IV SCH ×2 (06:06→13:38)
[2020-09-10] MEDS: SLF 3 ML SYR IV SCH ×2 (06:07→13:32)
[2020-09-10 07:34] VITALS: BP 136/74
--- NOTE | 2020-09-10 07:35 | ECGEPIP ---
[facility] - ED Test Date: 2020-09-09 Pat Name: KOMAL JESUS Department: Room: - Gender: Female Skilled Labor: VIRGINIE : 1935 Requested By: Soo Chatman Order Number: [id number] Reading MD: Edmundo Montgomery Measurements Intervals [place] Rate: 57 P: 8 [place]: 124 QRS: 12 QRSD: 145 T: 5 QT: 428 QTc: 418 Interpretive Statements SINUS BRADYCARDIA INDETERMINATE AXIS RIGHT BUNDLE BRANCH BLOCK VOLTAGE CRITERIA FOR LVH ST ELEVATION, CONSIDER SEPTAL INFARCT Electronically Signed on 09-10-2020 7:34:35 EDT by Edmundo Montgomery
--- NOTE | 2020-09-10 07:46 | ECGEPIP ---
[facility] - ED Test Date: 2020-09-09 Pat Name: KOMAL JESUS Department: Room: - Gender: Female Electronic Video Games Servicer: VIRGINIE : 1935 Requested By: Soo Chatman Order Number: [id number] Reading MD: Edmundo Montgomery Measurements Intervals [place] Rate: 47 P: [place]: 0 QRS: 9 QRSD: 142 T: -15 QT: 459 QTc: 407 Interpretive Statements SINUS PAUSE VS 3RD DEGREE AV BLOCK TRANSITIONING TO SINUS RHYTHM INDETERMINATE AXIS RIGHT BUNDLE BRANCH BLOCK MODERATE VOLTAGE CRITERIA FOR LVH, CONSIDER NORMAL VARIANT ST ELEVATION, CONSIDER SEPTAL INFARCT Electronically Signed on 09-10-2020 7:46:09 EDT by Edmundo Montgomery
--- NOTE | 2020-09-10 08:20 | REP ---
INDICATION: Post pacer implant. COMPARISON: Portable chest x-ray September 09, 2020. TECHNIQUE: Two views.. FINDINGS: The lungs are well inflated and free of infiltrate. The pleural angles are sharp. The heart size is normal. Pulmonary vasculature is not increased. No significant bony abnormality is seen. A left-sided pacemaker is seen in place with dual leads in the right heart. There is no evidence of pneumothorax or hydrothorax. Aorta is somewhat tortuous. IMPRESSION: No active disease post left-sided transvenous pacemaker placement.. <Electronically signed by Hussain Demarco > 09/10/20 [id number]
[2020-09-10] MEDS: DIGOXIN 0.125 MG TAB PO SCH (08:32)
[2020-09-10] MEDS ORDERED: OMEPRAZOLE 20 MG CAP PO SCH (09:00)
[2020-09-10 11:50] VITALS: BP 124/68
[2020-09-10 12:23] VITALS: BP 124/68
[2020-09-10] MEDS ORDERED: DIGO0.123 PO (15:25)
[2020-09-10] MEDS ORDERED: METO50TA7 PO (15:25)
--- NOTE | 2020-09-11 09:28 | ECGEPIP ---
[facility] Test Date: 2020-09-10 Pat Name: KOMAL JESUS Department: Room: [place] [address] Gender: Female Merchandise Pickup/Receiving Associate: : 1935 Requested By: Brando Contreras Order Number: [id number] Reading MD: Brando Contreras Measurements Intervals [place] Rate: 69 P: 181 OR: 239 QRS: 2 QRSD: 166 T: 4 QT: 412 QTc: 444 Interpretive Statements Consistent atrially paced rhythm with spontaneous AV conduction [place] QRS complexes with left axis and right bundle branch block Septal and lateral Q waves could not rule out prior infarction Prominent voltages suggestive of LEFT VENTRICULAR HYPERTROPHY but no strain pattern. No change from 09/09/20. Electronically Signed on 09-11-2020 9:28:00 EST by Brando Contreras
--- NOTE | 2020-09-12 11:52 | RO ---
DATE OF OPERATION: 09/09/2020 PREOPERATIVE DIAGNOSIS: * Tachybrady syndrome. * Paroxysmal atrial fibrillation with rapid ventricular response. POSTOPERATIVE DIAGNOSIS: 1. Tachybrady syndrome. 2. Paroxysmal atrial fibrillation with rapid ventricular response. PROCEDURE: Implantation of permanent dual-chamber pacemaker. IMPLANTING PAPER BALING MACHINE OPERATOR: Brando Contreras M.D. ANESTHESIOLOGIST: Dr. Thompson ANESTHESIA: Monitored local anesthesia. CLINICAL SUMMARY: This 85-year-old, mother of three, resident of [facility] here in [place] has been remarkably independent despite her age. She has been followed by Ramona Corbett, nurse practitioner for history of hypothyroidism and degenerative joint disease, gastroesophageal reflux disease and allergic rhinitis. She has had a history of abnormal EKG with negative stress testing in the past. Claims to be limited by dyspnea after climbing a flight of stairs, will stop for a moment. Denies chest pain. Sleep is interrupted by nocturia but not dyspnea. She has not been aware of her heart action. May have momentary positional lightheadedness but has not fallen. This morning, she awoke feeling vague retrosternal pressure and nausea. She took her vital signs and found her heart rate to be extremely fast. She called for assistance and vital signs were rechecked. An ambulance was summoned and EMS was able to record an EKG strip documenting atrial fibrillation with rapid ventricular response averaging 180 beats per minute. She was given Cardizem 8 mg IV with a good response and transported to [facility] ER. In the emergency room, after she was evaluated, the monitor showed an abrupt drop in her heart rate to 28 beats per minute. She was on no antirrhythmic therapy or negative chronotropic therapy beyond Cardizem which had been administered some two hours earlier. She was referred to my cardiology practice for a permanent dual chamber pacemaker implantation to facilitate safe administration of negative chronotropic agent for potential recurrent bout of atrial fibrillation, rapid ventricular response. A pleasant, elderly lady of about medium body build, lying comfortably with the had of the bed elevated 30 degrees. Heart rate preoperatively was 63 beats per minute and regular, blood pressure 127/69,r. Respiratory rate was 18. O2 saturation was 97% on room air. She was afebrile. Her weight was 136 lb, height 63 inches. No pallor or icterus. No oral moisture. Trachea midline. Thyroid did not appear to be enlarged. Normal chest configuration and chest expansion with good air entry to both lung zuluaga with no abnormal pulmonary adventitious sounds. Apical impulse medial to the midclavicular line, fifth intercostal space. S1 normal, S2 was single. No current audible gallops or murmur. Normal carotid upstrokes and volume without bruits. Her abdomen was soft with no hepatosplenomegaly. No pedal edema. Pedal pulses were normal Portable upright chest x-ray showed heart size within normal limits for this technique, a slightly unfolded thoracic aorta. Normal pulmonary vasculature. Well-inflated lung zuluaga with no infiltrate or pleural effusion. EKG showed sinus rhythm with left atrial conduction disturbance, borderline first degree AV block, left axis deviation with right bundle branch block, prominent voltage suggestive of left ventricular hypertrophy. Poor skipped Q-waves in V1 and V2 suggestive of prior septal infarction though prior noninvasive testing proved this not to be the case. No primary repolarization abnormality. Hemoglobin 11.7. White blood cell count was normal. Platelet count normal. PT/INR was normal. Electrolytes were normal with BUN 20, creatinine 0.84, random glucose 93. Magnesium 1.8, normal liver function studies. Ultrasensitive TSH was 1.6 with free T4 1.06. Troponin I level was negative. DESCRIPTION OF PROCEDURE: With the patient in the fasting state, having signed informed consent and having received Ancef 2 gm IV premedication, she was taken to the operating theater. Numerous skin electrodes were applied to facilitate continuous electrocardiographic monitoring. Self-adhesive cardioverting/defibrillating pads were applied in a standard position and connected to a bedside cardioverter defibrillator. The left subclavian region was prepped and draped in the usual fashion. The skin was infiltrated with 1% Xylocaine and the left axillary vein was catheterized using the Seldinger technique. A 5 cm linear incision was then made several cm below and parallel to the left clavicle. Dissection was carried down to the level of the pectoralis fascia. A pocket was fashioned below the level of the incision line. Two bipolar screw-in active fixation, steroid-eluting pacing leads were the positioned to the right ventricular apex and mid-right atrial free wall under fluoroscopic and electrocardiographic control. The ventricular lead ([employer], model number [id number], serial number [id number]) measurements were focal and stimulation thresholds 0.9 V/0.4 mf/impedance 830 ohms. The R wave amplitude measured 7.2 mV. The standard position we used for atrial placement showed very poor pacing thresholds. After approximately six separate sites, the final position was acceptable. The atrial lead ([employer], model number [id number], serial number [id number]) measurements were focal and stimulation thresholds 0.5 V/0.4 mf/impedance 630 ohms. The P wave amplitude measured 2.0 mV. These leads were then connected to a dual-chamber pulse generator ([id number], model number [id number], serial number [id number]) and appropriate DDD pacing was documented. The device was then placed in the pocket and secured in position with a suture through the upper right-hand corner of the epoxy header. The subcutaneous tissues were approximated using a running quilting suture and the skin was closed using talib. A dry dressing was applied and the patient was returned to the recovery room in good condition. ESTIMATED BLOOD LOSS: 10 mL COMPLICATIONS: No apparent complications. Postoperative portable upright chest x-ray showed good lead position with no pneumothorax. Her postoperative EKG documents consistent atrial lead paced rhythm at 70 beats per minute with first degree AV block, marked left axis left anterior hemiblock and right bundle branch block. No repolarization change from preoperatively. At this point, the patient will be admitted to a telemetry unit and will be started on negative chronotropic therapy including digoxin 0.125 mg p.o. daily and for the time being, metoprolol tartrate 25 mg p.o. q.6h, hold for systolic blood pressure less than 110 mmHg. We anticipate she will be able to be discharged tomorrow morning. MANUEL
--- NOTE | 2020-09-12 12:55 | IPN ---
DATE: 09/10/2020 SUBJECTIVE: Patient claims to be feeling well with minimal incisional discomfort following her pacemaker implant yesterday. She has been up in the room and feels steady. Has remained free of any awareness of her heart action. No effort related chest discomfort or dyspnea. Appears to be tolerating her negative chronotropic therapy without adverse affect. OBJECTIVE: A pleasant elderly lady of medium build laying comfortably with the head of the bed elevated 30 degrees. Heart rate 70 beats per minute and regular, blood pressure 124/68, respiratory rate 18, O2 saturation 94% on room air. Afebrile. Weight 136 pounds. Height 63 inches. BMI 24.1. No pallor or icterus. Normal oral moisture. Trachea midline. Neck veins were not elevated. Normal chest expansion. Her incision appears to be healing well with minimal erythema but no ecchymosis or swelling. The dressing was changed at this time. P.A. and left lateral chest x-ray taken this morning was reviewed independently and shows heart size upper limits of normal with stable lead position and no pneumothorax. Clear lung zuluaga. EKG today showed sinus rhythm alternating with a ventricular paced rhythm at 70 BPM. Spontaneous AV conduction with a left axis deviation and right bundle branch block pattern that is unchanged from the previous day post pacemaker implant. Pacemaker interrogation: Complete device interrogation was performed [facility] [facility] MRI compatible 2271. Excellent intracardiac electrograms and pacing thresholds with anticipated battery longevity of more than 9 years. Subtle program changes were made to insure minimal needless ventricular pacing. Campus Receptionist: Following pacemaker implant, we started her on Digoxin and Metoprolol, and she has remained free of further PSVT. IMPRESSION/PLAN: * Tachybrady syndrome: her pacemaker is working appropriately with stable lead position. We have instructed her to perform only light activities of daily living with her left arm and avoid getting her incision wet until her talib are removed in our office in 7-10 days time. Excellent pacemaker performance as mentioned above with subtle program change today. She understands the function of her remote monitor system through our office. * Paroxysmal atrial fibrillation with rapid ventricular response: At this point she has remained in mostly atrially paced rhythm with spontaneous AV conduction and no further PSVT or atrial fibrillation. At this point we have not started her on oral anticoagulant therapy but will be checking her pacemaker at the time she comes to our office to see if she has suffered any further episodes. Hopefully with the combination of pacing at a physiological rate her Digoxin and Metoprolol, she will be free of any further atrial tachyarrhythmia. At this point she is eager to be discharged home. In light of her age, and the fact that she lives alone, we have arranged for home health to check on her for the next few days. We have encouraged her to perform only light activities with her left arm as mentioned. She is to continue on a modest salt, low fat and low cholesterol diet. Her medications at this point will include Digoxin 125 mcg daily with Metoprolol Tartrate 50 mg twice daily. She will continue her customary Omeprazole 20 mg twice daily, Rosuvastatin 10 mg daily, Levothyroxine 25 mcg daily, calcium with vitamin D 650 mg one tablet daily, vitamin D-3 1,000 units tablets two tablets daily, [place]-3 fatty acids one gram daily, Miralax 17 grams p.o. q. h.s., multivitamin one capsule twice daily, vitamin B complex one tablet daily, Benefiber 144 grams daily, magnesium oxide 250 mg daily, a probiotic one tablet q. h.s. and Ibuprofen 400 mg p.o. four times daily p.r.n. for pain. We have encouraged her to contact our office should she have any questions. MANUEL
== END 2020-09-10 16:28 | disposition home or self-care (01) ==
LOC: M ED 09:55 → EDBD 09:55 → M ED INP 09:56 → M ED 13:53 → M PCU 16:24
PROVIDERS: ADMIT Internal Medicine Cardiovascular Disease; ATTEND Internal Medicine Cardiovascular Disease
DX: I49.5 Sick sinus syndrome (principal); I48.0 Paroxysmal atrial fibrillation; E78.49 Other hyperlipidemia; E03.9 Hypothyroidism, unspecified; K21.9 Gastro-esophageal reflux disease without esophagitis; Z79.899 Other long term (current) drug therapy; Z88.0 Allergy status to penicillin
CPT/HCPCS: 33208; 71045; 71046; 76000; 80047; 80076; 83605; 83690; 83735; 84439; 84443; 84484; 85025; 85610; 85730; 86850; 86900; 86901; 93005; 93041; 94760; 96361; 96365; 96366; 99285; C1785; C1898; G0378; J0690; J3010; U0002

== ENCOUNTER → 2020-12-07 | Outpatient (REF) | payer MEDICARE ==
[~2020-12-07] MED LIST changes: +D31000TA2 PO; +DIGO0.123 PO; +FISH1000 PO; +IBUP200C28 PO; +METO50TA7 PO; +[UNRECOGNIZED DRUG - CODE] PO
[2020-12-07 15:09] LABS: ALBUMIN 3.8 GM/DL (3.2-5.2); ALT/SGPT 19 U/L (12-78); BILIRUBIN,TOTAL 0.4 MG/DL (0.2-1.0); BLOOD UREA NITROGEN 16 MG/DL (7-18); CARBON DIOXIDE LEVEL 31 MEQ/L (21-32); CHLORIDE LEVEL 101 MEQ/L (98-107); CREATININE FOR GFR 0.84 MG/DL (0.55-1.30); FREE T4 1.01 NG/DL (0.76-1.46); GLOMERULAR FILTRATION RATE > 60.0 (>32); GLUCOSE, FASTING 91 MG/DL (70-100); POTASSIUM SERUM 4.9 MEQ/L (3.5-5.1); SODIUM LEVEL 137 MEQ/L (136-145); TOTAL PROTEIN 6.9 GM/DL (6.4-8.2)
== END ==
LOC: M PLALAB 10:00
PROVIDERS: ATTEND Nurse Practitioner Family
DX: M81.0 Age-related osteoporosis without current pathological fracture (principal); E03.9 Hypothyroidism, unspecified

== ENCOUNTER → 2021-02-08 | Outpatient (CLI) | payer MEDICARE ==
--- NOTE | 2021-02-08 12:40 | REPMRS ---
Patient History The patient states she had a clinical breast exam in 2019. No known family history of cancer. 3D TOMOSYNTHESIS WAS PERFORMED. Mary breast density c. Digital Woman Screen Mammo: February 08, 2021 - Exam #: [id number] Bilateral CC and MLO view(s) were taken. Technologist: Dori Romero, Technologist Prior study comparison: January 22, 2020, bilateral digital woman screen mammo performed at [facility]. January 19, 2019, bilateral digital mammo screening bilat, performed at [facility]. 2018, bilateral diagnostic 3D/tomosynthesis, performed at [facility]. FINDINGS: There are scattered fibroglandular densities. There has been no change in the appearance of the mammogram from the prior studies. There is a mild amount of residual fibroglandular tissue which is fairly symmetric. There is no interval development of dominant mass, architectural distortion, or clustered microcalcification suggestive of malignancy. Assessment: BI-RADS/ACR category 1 mammogram. Negative Mammogram. Recommendation Routine screening mammogram in 1 year (for women over age 40). This mammogram was interpreted with the aid of an FDA-approved computer-aided dectection system. Electronically Signed By: Alonso Cohen MD 02/08/21 [id number]
== END ==
LOC: M WHC 11:16
PROVIDERS: ATTEND Specialist
DX: Z12.31 Encounter for screening mammogram for malignant neoplasm of breast (principal); Z85.3 Personal history of malignant neoplasm of breast

== ENCOUNTER → 2021-06-07 | Outpatient (CLI) | payer MEDICARE ==
[~2021-06-07] MED LIST changes: +OMEP20TA2 PO; -OMEP20TA9 PO
[2021-06-07 08:49] LABS: ALBUMIN 3.8 GM/DL (3.2-5.2); ALT/SGPT 25 U/L (12-78); BILIRUBIN,TOTAL 0.5 MG/DL (0.2-1.0); BLOOD UREA NITROGEN 12 MG/DL (7-18); CALCIUM LEVEL 9.6 MG/DL (8.8-10.2); CARBON DIOXIDE LEVEL 30 MEQ/L (21-32); CHLORIDE LEVEL 102 MEQ/L (98-107); CHOLESTEROL LEVEL 196 MG/DL (<200); CHOLESTEROL RISK RATIO 2.613 (<5); CREATININE FOR GFR 0.76 MG/DL (0.55-1.30); FREE T4 0.91 NG/DL (0.76-1.46); GLOMERULAR FILTRATION RATE > 60.0 (>32); GLUCOSE, FASTING 93 MG/DL (70-100); HDL CHOLESTEROL 75 MG/DL (>40); LDL CHOLESTEROL 98 MG/DL (<100); NON-HDL-C 121 MG/DL; POTASSIUM SERUM 4.4 MEQ/L (3.5-5.1); SODIUM LEVEL 137 MEQ/L (136-145); TOTAL PROTEIN 6.9 GM/DL (6.4-8.2); TRIGLYCERIDES LEVEL 113 MG/DL (<150)
== END ==
LOC: M LAB 07:45
PROVIDERS: ATTEND Nurse Practitioner Family
DX: M81.0 Age-related osteoporosis without current pathological fracture (principal); E03.9 Hypothyroidism, unspecified; E78.2 Mixed hyperlipidemia; Z79.899 Other long term (current) drug therapy

== ENCOUNTER → 2021-10-09 | Outpatient (CLI) | payer MEDICARE ==
[~2021-10-09] MED LIST changes: +ECOT81TA5 PO; +METO1TAB87
[2021-10-09 07:35] LABS: ALBUMIN 3.4 GM/DL (3.2-5.2); ALT/SGPT 23 U/L (12-78); BILIRUBIN,TOTAL 0.4 MG/DL (0.2-1.0); BLOOD UREA NITROGEN 17 MG/DL (7-18); CALCIUM LEVEL 9.6 MG/DL (8.8-10.2); CARBON DIOXIDE LEVEL 29 MEQ/L (21-32); CHLORIDE LEVEL 101 MEQ/L (98-107); CHOLESTEROL LEVEL 191 MG/DL (<200); CHOLESTEROL RISK RATIO 2.581 (<5); CREATININE FOR GFR 0.73 MG/DL (0.55-1.30); GLOMERULAR FILTRATION RATE > 60.0 (>32); GLUCOSE, FASTING 91 MG/DL (70-100); HDL CHOLESTEROL 74 MG/DL (>40); LDL CHOLESTEROL 97 MG/DL (<100); NON-HDL-C 117 MG/DL; POTASSIUM SERUM 4.2 MEQ/L (3.5-5.1); SODIUM LEVEL 137 MEQ/L (136-145); TOTAL PROTEIN 6.7 GM/DL (6.4-8.2); TRIGLYCERIDES LEVEL 99 MG/DL (<150)
[2021-10-09 11:41] LABS: TOTAL 25(OH) VITAMIN D 88.9 NG/ML (30.0-100.0)
== END ==
LOC: M LAB 06:19
PROVIDERS: ATTEND Nurse Practitioner Adult Health
DX: M81.0 Age-related osteoporosis without current pathological fracture (principal); E78.2 Mixed hyperlipidemia

== ENCOUNTER 2021-12-28 18:14 | Emergency (ER) | payer MEDICARE ==
[~2021-12-28] VITALS: Ht 162.6 cm; Wt 55.7 kg
[~2021-12-28 18:14] MED LIST changes: -METO1TAB87
[2021-12-28] MEDS ORDERED: METO1TAB87 (20:09)
[2021-12-28 20:38] LABS: BASO % 0.5 % (0.0-1.0); EOS % 0.6 % (0.0-3.0); HEMATOCRIT 35.5 % (36.0-47.0); HEMOGLOBIN 11.8 g/dl (12.0-15.5); LYMPH # 1.4 10^3/uL (1.5-5.0); LYMPH % 22.2 % (24.0-44.0); MEAN CORPUSCULAR HEMOGLOBIN 30.2 pg (27.0-33.0); MEAN CORPUSCULAR HGB CONC 33.2 g/dl (32.0-36.5); MEAN CORPUSCULAR VOLUME 90.8 fl (80.0-96.0); MONO # 0.5 10^3/uL (0.0-0.8); MONO % 8.8 % (2.0-8.0); NEUTROPHILS # 4.2 10^3/uL (1.5-8.5); NEUTROPHILS % 67.7 % (36.0-66.0); PLATELET COUNT, AUTOMATED 216 10^3/uL (150-450); RED BLOOD COUNT 3.91 10^6/uL (4.00-5.40); WHITE BLOOD COUNT 6.2 10^3/uL (4.0-10.0)
[2021-12-28 21:07] LABS: CK-MB VALUE MASS 2.9 NG/ML (<3.6); MB/CK RELATIVE INDEX 2.61 (< OR =4)
[2021-12-28 21:11] LABS: BLOOD UREA NITROGEN 14 MG/DL (7-18); CALCIUM LEVEL 9.5 MG/DL (8.8-10.2); CARBON DIOXIDE LEVEL 28 MEQ/L (21-32); CHLORIDE LEVEL 99 MEQ/L (98-107); CREATININE FOR GFR 0.72 MG/DL (0.55-1.30); GLOMERULAR FILTRATION RATE > 60.0 (>32); GLUCOSE, FASTING 98 MG/DL (70-100); NT-PRO BNP 946 PG/ML (<450); POTASSIUM SERUM 4.7 MEQ/L (3.5-5.1); SODIUM LEVEL 134 MEQ/L (136-145)
[2021-12-28] MEDS ORDERED: DIGOXIN 0.125 MG TAB PO ONE (21:45)
[2021-12-28] MEDS ORDERED: METOPROLOL TART 25 MG TABLET PO ONE (21:45)
[2021-12-28 22:08] VITALS: BP 151/73
[2021-12-29 01:02] VITALS: BP 124/65
== END 2021-12-29 01:04 | disposition home or self-care (01) ==
LOC: M ED 18:14
DX: I10 Essential (primary) hypertension (principal); E03.9 Hypothyroidism, unspecified; E78.5 Hyperlipidemia, unspecified; K21.9 Gastro-esophageal reflux disease without esophagitis; Z85.3 Personal history of malignant neoplasm of breast; Z79.899 Other long term (current) drug therapy; Z79.890 Hormone replacement therapy; Z79.82 Long term (current) use of aspirin; Z88.0 Allergy status to penicillin; Z95.0 Presence of cardiac pacemaker

== ENCOUNTER → 2022-01-22 | Outpatient (CLI) | payer MEDICARE ==
[~2022-01-22] MED LIST changes: -D31000TA2 PO; +METO1TAB87; +VITA100093 PO
== END ==
LOC: M WHC 08:02
PROVIDERS: ATTEND Specialist
DX: Z12.31 Encounter for screening mammogram for malignant neoplasm of breast (principal); Z85.3 Personal history of malignant neoplasm of breast; Z78.0 Asymptomatic menopausal state

== ENCOUNTER → 2022-04-02 | Outpatient (CLI) | payer MEDICARE ==
[2022-04-02 13:48] LABS: HEMATOCRIT 33.9 % (36.0-47.0); HEMOGLOBIN 11.5 g/dl (12.0-15.5); MEAN CORPUSCULAR HEMOGLOBIN 31.3 pg (27.0-33.0); MEAN CORPUSCULAR HGB CONC 33.9 g/dl (32.0-36.5); MEAN CORPUSCULAR VOLUME 92.4 fl (80.0-96.0); PLATELET COUNT, AUTOMATED 235 10^3/uL (150-450); RED BLOOD COUNT 3.67 10^6/uL (4.00-5.40); WHITE BLOOD COUNT 5.6 10^3/uL (4.0-10.0)
[2022-04-02 14:24] LABS: ALBUMIN 3.8 GM/DL (3.2-5.2); ALT/SGPT 21 U/L (12-78); BILIRUBIN,TOTAL 0.4 MG/DL (0.2-1.0); BLOOD UREA NITROGEN 18 MG/DL (7-18); CALCIUM LEVEL 10.2 MG/DL (8.8-10.2); CARBON DIOXIDE LEVEL 29 MEQ/L (21-32); CHLORIDE LEVEL 99 MEQ/L (98-107); CREATININE FOR GFR 0.71 MG/DL (0.55-1.30); FERRITIN 39 NG/ML (8-252); FREE T4 1.02 NG/DL (0.76-1.46); GLOMERULAR FILTRATION RATE > 60.0 (>32); GLUCOSE, FASTING 97 MG/DL (70-100); IRON (FE) 74 UG/DL (50-170); PERCENT SATURATION 20.8 % (13.2-45.0); POTASSIUM SERUM 4.9 MEQ/L (3.5-5.1); SODIUM LEVEL 135 MEQ/L (136-145); THYROID STIMULATING HORMONE 0.959 uIU/ML (0.358-3.740); TOTAL IRON BINDING CAPACITY 356 UG/DL (250-450); TOTAL PROTEIN 6.7 GM/DL (6.4-8.2)
[2022-04-02 14:26] LABS: TOTAL 25(OH) VITAMIN D 80.8 NG/ML (30.0-100.0)
== END ==
LOC: M PLALAB 11:04
PROVIDERS: ATTEND Nurse Practitioner Adult Health
DX: E78.2 Mixed hyperlipidemia (principal); E55.9 Vitamin D deficiency, unspecified; D64.9 Anemia, unspecified; E03.9 Hypothyroidism, unspecified

== ENCOUNTER → 2022-09-10 | Outpatient (CLI) | payer MEDICARE ==
[~2022-09-10] MED LIST changes: +ROSU10TA6
== END ==
LOC: M WHC 12:34
PROVIDERS: ATTEND Internal Medicine Hematology & Oncology
DX: M81.0 Age-related osteoporosis without current pathological fracture (principal); M85.852 Other specified disorders of bone density and structure, left thigh

== ENCOUNTER 2022-09-14 10:57 | Emergency (ER) | payer MEDICARE ==
[~2022-09-14] VITALS: Ht 165.1 cm; Wt 85.2 kg
[~2022-09-14 10:57] MED LIST changes: -ROSU10TA6
[2022-09-14] MEDS ORDERED: ROSU10TA6 (11:17)
[2022-09-14 12:01] LABS: BASO # 0.1 10^3/uL (0.0-0.2); BASO % 1.1 % (0.0-1.0); EOS # 0.2 10^3/uL (0.0-0.5); EOS % 3.1 % (0.0-3.0); HEMATOCRIT 34.8 % (36.0-47.0); HEMOGLOBIN 11.9 g/dl (12.0-15.5); LYMPH # 1.5 10^3/uL (1.5-5.0); LYMPH % 27.6 % (24.0-44.0); MEAN CORPUSCULAR HEMOGLOBIN 31.3 pg (27.0-33.0); MEAN CORPUSCULAR HGB CONC 34.2 g/dl (32.0-36.5); MEAN CORPUSCULAR VOLUME 91.6 fl (80.0-96.0); MONO # 0.5 10^3/uL (0.0-0.8); MONO % 9.2 % (2.0-8.0); NEUTROPHILS # 3.3 10^3/uL (1.5-8.5); NEUTROPHILS % 58.6 % (36.0-66.0); WHITE BLOOD COUNT 5.6 10^3/uL (4.0-10.0)
[2022-09-14 12:35] LABS: CK-MB VALUE MASS 2.3 NG/ML (<3.6); MB/CK RELATIVE INDEX 1.7 (< OR =4)
[2022-09-14 12:50] LABS: OSMOLALITY SERUM 266 MOSM/KG (280-301)
[2022-09-14 12:54] LABS: ALBUMIN 3.8 GM/DL (3.2-5.2); ALT/SGPT 25 U/L (12-78); BILIRUBIN,DIRECT < 0.1 MG/DL (0.0-0.2); BILIRUBIN,TOTAL 0.6 MG/DL (0.2-1.0); BLOOD UREA NITROGEN 15 MG/DL (7-18); CALCIUM LEVEL 9.7 MG/DL (8.8-10.2); CARBON DIOXIDE LEVEL 26 MEQ/L (21-32); CHLORIDE LEVEL 93 MEQ/L (98-107); CREATININE FOR GFR 0.67 MG/DL (0.55-1.30); GLOMERULAR FILTRATION RATE > 60.0 (>32); GLUCOSE, FASTING 98 MG/DL (70-100); POTASSIUM SERUM 5.3 MEQ/L (3.5-5.1); SODIUM LEVEL 128 MEQ/L (136-145); TOTAL PROTEIN 6.8 GM/DL (6.4-8.2)
[2022-09-14 13:14] VITALS: BP 131/62
[2022-09-14 15:39] LABS: CREATININE,RANDOM URINE 42.2 MG/DL
[2022-09-14 16:48] LABS: DIGOXIN LEVEL 0.8 NG/ML (0.5-2.0)
[2022-09-14 16:58] LABS: FREE T4 1.05 NG/DL (0.76-1.46); THYROID STIMULATING HORMONE 1.33 uIU/ML (0.358-3.740)
== END 2022-09-14 18:19 | disposition home or self-care (01) ==
LOC: M ED 10:57
DX: R53.1 Weakness (principal); E87.1 Hypo-osmolality and hyponatremia; R94.31 Abnormal electrocardiogram [ECG] [EKG]; I10 Essential (primary) hypertension; E03.9 Hypothyroidism, unspecified; K21.9 Gastro-esophageal reflux disease without esophagitis; Z95.0 Presence of cardiac pacemaker; Z88.0 Allergy status to penicillin; Z79.890 Hormone replacement therapy; Z79.899 Other long term (current) drug therapy

== ENCOUNTER → 2022-09-27 | Outpatient (CLI) | payer MEDICARE ==
[~2022-09-27] MED LIST changes: +ROSU10TA6
[2022-09-27 14:15] LABS: ALBUMIN 3.8 G/DL (3.2-5.2); ALT/SGPT 16 U/L (7.0-40); BILIRUBIN,TOTAL 0.5 MG/DL (0.3-1.2); BLOOD UREA NITROGEN 17 MG/DL (9-23); CARBON DIOXIDE LEVEL 28 MMOL/L (20-31); CHLORIDE LEVEL 98 MMOL/L (98-107); CREATININE FOR GFR 0.75 MG/DL (0.55-1.30); GLOMERULAR FILTRATION RATE > 60.0 (>32); GLUCOSE, FASTING 94 MG/DL (74-106); POTASSIUM SERUM 5.2 MMOL/L (3.5-5.1); SODIUM LEVEL 133 MMOL/L (136-145); TOTAL PROTEIN 6.1 G/DL (5.7-8.2)
== END ==
LOC: M PLALAB 10:53
PROVIDERS: ATTEND Nurse Practitioner Adult Health
DX: E87.1 Hypo-osmolality and hyponatremia (principal)

== ENCOUNTER → 2023-01-23 | Outpatient (CLI) | payer MEDICARE ==
[~2023-01-23] MED LIST changes: +FERR325T3 PO; +OMEG10002 PO
== END ==
LOC: M WHC 11:04
PROVIDERS: ATTEND Internal Medicine Hematology & Oncology
DX: Z12.31 Encounter for screening mammogram for malignant neoplasm of breast (principal)

== ENCOUNTER → 2023-04-01 | Outpatient (CLI) | payer MEDICARE ==
[2023-04-01 14:04] LABS: ALBUMIN 3.7 G/DL (3.2-5.2); ALKALINE PHOSPHATASE 58 U/L (46-116); ALT/SGPT 14 U/L (7.0-40); AST/SGOT 21 U/L (<34); BILIRUBIN,TOTAL 0.5 MG/DL (0.3-1.2); BLOOD UREA NITROGEN 15 MG/DL (9-23); CALCIUM LEVEL 10.3 MG/DL (8.3-10.6); CARBON DIOXIDE LEVEL 30 MMOL/L (20-31); CHLORIDE LEVEL 95 MMOL/L (98-107); CREATININE FOR GFR 0.73 MG/DL (0.55-1.30); GLOMERULAR FILTRATION RATE > 60.0 (>32); GLUCOSE, FASTING 91 MG/DL (74-106); POTASSIUM SERUM 4.9 MMOL/L (3.5-5.1); SODIUM LEVEL 131 MMOL/L (136-145); TOTAL PROTEIN 6.2 G/DL (5.7-8.2)
== END ==
LOC: M PLALAB 10:12
PROVIDERS: ATTEND Nurse Practitioner Adult Health
DX: E87.1 Hypo-osmolality and hyponatremia (principal)

== ENCOUNTER 2023-10-26 19:58 | Emergency (ER) | payer MEDICARE ==
[~2023-10-26] VITALS: Ht 165.1 cm; Wt 52.9 kg
[2023-10-26 19:59] VITALS: TEMP 97.8
[2023-10-26 21:12] LABS: BASO # 0.1 10^3/uL (0.0-0.2); BASO % 1.2 % (0.0-1.0); EOS # 0.1 10^3/uL (0.0-0.5); EOS % 2.5 % (0.0-3.0); HEMATOCRIT 38.8 % (36.0-47.0); LYMPH # 1.8 10^3/uL (1.5-5.0); LYMPH % 30.8 % (24.0-44.0); MEAN CORPUSCULAR HEMOGLOBIN 30.4 pg (27.0-33.0); MEAN CORPUSCULAR HGB CONC 33.5 g/dl (32.0-36.5); MEAN CORPUSCULAR VOLUME 90.9 fl (80.0-96.0); MONO # 0.6 10^3/uL (0.0-0.8); MONO % 11.3 % (2.0-8.0); NEUTROPHILS # 3.1 10^3/uL (1.5-8.5); PLATELET COUNT, AUTOMATED 265 10^3/uL (150-450); RED BLOOD COUNT 4.27 10^6/uL (4.00-5.40); WHITE BLOOD COUNT 5.7 10^3/uL (4.0-10.0)
[2023-10-26 21:30] LABS: CK-MB VALUE MASS 2.4 NG/ML (<3.6)
[2023-10-26 21:31] LABS: BLOOD UREA NITROGEN 13 MG/DL (9-23); CALCIUM LEVEL 10.4 MG/DL (8.3-10.6); CARBON DIOXIDE LEVEL 22 MMOL/L (20-31); CHLORIDE LEVEL 98 MMOL/L (98-107); CREATININE FOR GFR 0.55 MG/DL (0.55-1.30); DIGOXIN LEVEL 0.6 NG/ML (0.8-2.0); GLOMERULAR FILTRATION RATE > 60.0 (>32); GLUCOSE, FASTING 90 MG/DL (74-106); POTASSIUM SERUM 4.4 MMOL/L (3.5-5.1); SODIUM LEVEL 130 MMOL/L (136-145)
[2023-10-26 21:33] LABS: CPK CREATINE PHOSPHOKINASE 148 U/L (34-145); MB/CK RELATIVE INDEX 1.62 (< OR =4)
[2023-10-26 21:45] VITALS: BP 136/69; O2SAT 99
[2023-10-26 22:47] LABS: CK-MB VALUE MASS 1.8 NG/ML (<3.6)
[2023-10-26 22:49] LABS: MB/CK RELATIVE INDEX 1.28 (< OR =4)
== END 2023-10-27 00:16 | disposition home or self-care (01) ==
LOC: M ED 19:58
DX: I10 Essential (primary) hypertension (principal); I48.91 Unspecified atrial fibrillation; K21.9 Gastro-esophageal reflux disease without esophagitis; E03.9 Hypothyroidism, unspecified; E78.5 Hyperlipidemia, unspecified; Z85.3 Personal history of malignant neoplasm of breast; Z95.0 Presence of cardiac pacemaker; Z79.82 Long term (current) use of aspirin; Z79.899 Other long term (current) drug therapy; Z88.0 Allergy status to penicillin

== ENCOUNTER → 2023-12-11 | Outpatient (CLI) | payer MEDICARE ==
[2023-12-11 08:34] LABS: HEMATOCRIT 36.9 % (36.0-47.0); HEMOGLOBIN 12.3 g/dl (12.0-15.5); MEAN CORPUSCULAR HEMOGLOBIN 30.2 pg (27.0-33.0); MEAN CORPUSCULAR HGB CONC 33.3 g/dl (32.0-36.5); MEAN CORPUSCULAR VOLUME 90.7 fl (80.0-96.0); PLATELET COUNT, AUTOMATED 231 10^3/uL (150-450); RED BLOOD COUNT 4.07 10^6/uL (4.00-5.40); WHITE BLOOD COUNT 4.3 10^3/uL (4.0-10.0)
[2023-12-11 09:00] LABS: ALBUMIN 3.4 G/DL (3.2-5.2); ALKALINE PHOSPHATASE 75 U/L (46-116); ALT/SGPT 15 U/L (7.0-40); AST/SGOT 17 U/L (<34); BILIRUBIN,TOTAL 0.7 MG/DL (0.3-1.2); BLOOD UREA NITROGEN 11 MG/DL (9-23); CALCIUM LEVEL 9.7 MG/DL (8.3-10.6); CARBON DIOXIDE LEVEL 30 MMOL/L (20-31); CHLORIDE LEVEL 99 MMOL/L (98-107); CHOLESTEROL LEVEL 189 MG/DL (<200); CREATININE FOR GFR 0.67 MG/DL (0.55-1.30); GLOMERULAR FILTRATION RATE > 60.0 (>32); GLUCOSE, FASTING 91 MG/DL (74-106); HDL CHOLESTEROL 85.8 MG/DL (>40); IRON (FE) 96 UG/DL (50-170); LDL CHOLESTEROL 88.8 MG/DL (<100); NON-HDL-C 103.2 MG/DL; POTASSIUM SERUM 4.4 MMOL/L (3.5-5.1); SODIUM LEVEL 132 MMOL/L (136-145); THYROID STIMULATING HORMONE 2.027 uIU/ML (0.55-4.78); TOTAL PROTEIN 6.5 G/DL (5.7-8.2); TRIGLYCERIDES LEVEL 72 MG/DL (<150)
[2023-12-11 09:01] LABS: FERRITIN 54.2 NG/ML (7.3-270.7); FOLATE 6.15 NG/ML (>5.4)
[2023-12-11 09:02] LABS: TOTAL 25(OH) VITAMIN D 76.6 NG/ML (20.0-100.0); VITAMIN B12 LEVEL 396 PG/ML (211-911)
== END ==
LOC: M LAB 07:55
PROVIDERS: ATTEND Nurse Practitioner Adult Health
DX: D64.9 Anemia, unspecified (principal); E78.2 Mixed hyperlipidemia; E55.9 Vitamin D deficiency, unspecified; E03.9 Hypothyroidism, unspecified; E78.1 Pure hyperglyceridemia